=== PATIENT | female | born 1950 | race Caucasian/White ===

== ENCOUNTER 2017-07-27 20:25 | Emergency (ER) | payer MEDICARE, OTHER ==
[~2017-07-27] VITALS: Ht 157.5 cm; Wt 122.7 kg
[2017-07-27 20:26] VITALS: BP 127/92
[2017-07-27] MEDS ORDERED: OXYB5TAB10 PO (20:38)
[2017-07-27] MEDS ORDERED: FLUT1SPR2 (20:38)
[2017-07-27] MEDS ORDERED: LORA10TA2 (20:38)
[2017-07-27] MEDS ORDERED: OMEP20CA3 (20:38)
[2017-07-27] MEDS ORDERED: ZITHTAB PO (20:53)
[2017-07-27] MEDS ORDERED: TESS100C PO (20:54)
== END 2017-07-27 21:07 | disposition home or self-care (01) ==
LOC: M ED 20:25
DX: J01.90 Acute sinusitis, unspecified (principal); Z88.8 Allergy status to other drugs, medicaments and biological substances